=== PATIENT | male | born 1975 | race Caucasian/White ===

== ENCOUNTER → 2024-11-07 09:59 | Outpatient (REF) | payer BC, SELFPAY ==
[2024-11-07 11:40] LABS: Hepatitis B Surface Antibody Positive
[2024-11-09 15:29] LABS: Quantiferon Mitogen minus NIL 9.73 IU/mL; Quantiferon NIL 0.27 IU/mL; Quantiferon Plus TB2 minus NIL 0.04 IU/mL (<=0.34); Quantiferon TB Gold Plus Negative (Negative)
== END ==
LOC: OHS 09:59
PROVIDERS: ATTENDING PHYSICIAN Nurse Practitioner Family; FAMILY PHYSICIAN Family Medicine
DX: Z23 Encounter for immunization (principal)
CPT/HCPCS: 36415; 86480; 86706; 86735; 86765; 86787

== ENCOUNTER → 2025-06-30 09:00 | Outpatient (REF) | payer BC, SELFPAY | LOC: EMG 09:00 | PROVIDERS: ATTENDING PHYSICIAN Orthopaedic Surgery Hand Surgery; FAMILY PHYSICIAN Nurse Practitioner Adult Health | DX: M25.531 Pain in right wrist (principal); R20.0 Anesthesia of skin | CPT/HCPCS: 95886; 95911 ==

== ENCOUNTER 2025-10-14 06:17 | Day surgery (SDC) | payer BC, SELFPAY ==
[2025-10-09 07:37] VITALS: BMI 39.3
[2025-10-09 09:23] LABS: ALT (SGPT) 37 U/L (0-50); AST (SGOT) 25 U/L (17-59); Albumin 4.6 g/dl (3.5-5.0); Alkaline Phosphatase 49 U/L (38-126); Blood Urea Nitrogen 17 mg/dl (9-20); Calcium 9.0 mg/dl (8.4-10.2); Carbon Dioxide 28 mmol/L (22-30); Chloride 107 mmol/L (98-107); Estimated Creatinine Clearance 122 ml/min; Glucose 93 mg/dl (70-99); Potassium 4.7 mmol/L (3.5-5.1); Sodium 140 mmol/L (135-145); Total Protein 7.3 g/dl (6.3-8.2); eGFR > 60.00
[2025-10-14] VITALS (8 sets, daily range): BP systolic 90–124; BP diastolic 59–77; BMI 39.3
[2025-10-14] MEDS: CELEBREX 200 MG PO (09:15)
[2025-10-14] MEDS: TYLENOL 1000 MG PO (09:15)
[2025-10-14] MEDS: NORMOSOL-R/PLASMALYTE-A 1000 IV (09:15)
== END 2025-10-14 13:27 | disposition home or self-care (01) ==
LOC: SDS 06:17
PROVIDERS: ATTENDING PHYSICIAN Orthopaedic Surgery Hand Surgery; FAMILY PHYSICIAN Family Medicine
DX: G56.01 Carpal tunnel syndrome, right upper limb (principal)
CPT/HCPCS: 29848; 80053